=== PATIENT | male | born 1950 | race Caucasian/White ===

== ENCOUNTER → 2023-12-09 09:22 | Outpatient (REF) | payer MEDICARE, SELFPAY | LOC: RAD 09:22 | PROVIDERS: ATTENDING PHYSICIAN Physician Assistant Surgical; FAMILY PHYSICIAN Family Medicine | DX: M25.511 Pain in right shoulder (principal); M25.512 Pain in left shoulder | CPT/HCPCS: 73030 ==

== ENCOUNTER 2024-01-31 15:17 | Outpatient (RCR) | payer MEDICARE, SELFPAY | END 2024-01-31 23:59 | disposition home or self-care (01) | LOC: RPT 15:17 | PROVIDERS: ATTENDING PHYSICIAN Physician Assistant Surgical; FAMILY PHYSICIAN Family Medicine | DX: M25.512 Pain in left shoulder (principal); M25.511 Pain in right shoulder; M19.011 Primary osteoarthritis, right shoulder; M19.012 Primary osteoarthritis, left shoulder; Z73.6 Limitation of activities due to disability | CPT/HCPCS: 97110; 97162 ==

== ENCOUNTER 2024-02-14 14:58 | Outpatient (RCR) | payer MEDICARE, SELFPAY | END 2024-02-14 23:59 | disposition home or self-care (01) | LOC: RPT 14:58 | PROVIDERS: ATTENDING PHYSICIAN Physician Assistant Surgical; FAMILY PHYSICIAN Family Medicine | DX: M25.512 Pain in left shoulder (principal); M25.511 Pain in right shoulder; M19.012 Primary osteoarthritis, left shoulder; M19.011 Primary osteoarthritis, right shoulder; Z73.6 Limitation of activities due to disability | CPT/HCPCS: 97110 ==

== ENCOUNTER → 2024-08-16 10:44 | Outpatient (REF) | payer MEDICARE, SELFPAY | LOC: MRI 3T 10:44 | PROVIDERS: ATTENDING PHYSICIAN Physician Assistant Surgical; FAMILY PHYSICIAN Family Medicine | DX: M25.512 Pain in left shoulder (principal) | CPT/HCPCS: 73221 ==

== ENCOUNTER → 2024-08-23 10:46 | Outpatient (REF) | payer MEDICARE, SELFPAY ==
[2024-08-23 12:51] LABS: Erythrocyte Sed Rate 10 mm/hour (0-20)
[2024-08-23 13:29] LABS: Creatine Phosphokinase 73 U/L (55-170)
[2024-08-26 00:03] LABS: CCP Antibody IgG/IgA 5 Units (0-19)
== END ==
LOC: REG 10:46
PROVIDERS: ATTENDING PHYSICIAN Physician Assistant Surgical; FAMILY PHYSICIAN Family Medicine
DX: M25.512 Pain in left shoulder (principal)
CPT/HCPCS: 36415; 82550; 85652; 86140; 86200; 86430

== ENCOUNTER → 2024-08-27 15:28 | Outpatient (REF) | payer MEDICARE, SELFPAY | LOC: HWRAD 15:28 | PROVIDERS: ATTENDING PHYSICIAN Physician Assistant Surgical; FAMILY PHYSICIAN Family Medicine | DX: M19.012 Primary osteoarthritis, left shoulder (principal) | CPT/HCPCS: 73200 ==

== ENCOUNTER 2024-09-03 05:59 | Day surgery (SDC) | payer MEDICARE, SELFPAY ==
[2024-08-28 13:22] VITALS: BMI 23.9
[2024-08-28 14:24] LABS: Hematocrit 42.7 % (39.0-52.0); Hemoglobin 14.7 g/dL (13.0-18.0); Mean Corp Hgb Conc. 34.4 g/dL (33.0-37.0); Mean Corpuscular Hgb 32.5 pg (27.0-31.0); Mean Corpuscular Volume 94.3 fL (80.0-94.0); Mean Platelet Volume 9.3 fL (7.4-10.4); Platelet Count 209 10^3/uL (130-400); Red Blood Cell Count 4.53 10^6/uL (4.70-6.10); Red Cell Dist. Width 12.7 % (11.5-14.5)
[2024-08-28 15:44] LABS: Glycohemoglobin (HgbA1c) 5.4 % (4.0-5.6)
[2024-08-28 16:09] LABS: ALT (SGPT) 30 U/L (0-50); AST (SGOT) 30 U/L (17-59); Albumin 4.2 g/dl (3.5-5.0); Alkaline Phosphatase 41 U/L (38-126); Blood Urea Nitrogen 30 mg/dl (9-20); Calcium 9.1 mg/dl (8.4-10.2); Carbon Dioxide 28 mmol/L (22-30); Chloride 101 mmol/L (98-107); Estimated Creatinine Clearance 64 ml/min; Glucose 95 mg/dl (70-99); Potassium 4.4 mmol/L (3.5-5.1); Sodium 142 mmol/L (135-145); Total Bilirubin 0.6 mg/dl (0.2-1.3); eGFR > 60.00
[2024-08-30 11:19] VITALS: BMI 23.9
[2024-09-03] VITALS (9 sets, daily range): BP systolic 107–166; BP diastolic 63–100; BMI 23.9
[2024-09-03] MEDS: TYLENOL 1000 MG PO (06:20)
[2024-09-03] MEDS: CELEBREX 200 MG PO (06:21)
[2024-09-03] MEDS: ANCEF 5 IV (11:13)
== END 2024-09-03 11:25 | disposition home or self-care (01) ==
LOC: SDS 05:59
PROVIDERS: ATTENDING PHYSICIAN Orthopaedic Surgery Hand Surgery; FAMILY PHYSICIAN Family Medicine
DX: M19.012 Primary osteoarthritis, left shoulder (principal)
CPT/HCPCS: 23472; C1776; 36415; 73020; 80053; 83036; 85027; 87070; 93005